=== PATIENT | female | born 1965 | race Caucasian/White ===

== ENCOUNTER 2022-08-02 04:50 | Day surgery (SDC) | payer OTHER ==
[2022-07-28 16:21] VITALS: BMI 31.3
[2022-08-02 08:31] VITALS: TEMP 98.7
[2022-08-02 09:01] VITALS: BP 112/66; PULSE 76; RESP 15
== END 2022-08-02 09:12 | disposition home or self-care (01) ==
LOC: JASU-ENDO 04:50
PROVIDERS: ATTEND Student in an Organized Health Care Education/Training Program
PROC: 0DJD8ZZ Inspection of Lower Intestinal Tract, Via Natural or Artificial Opening Endoscopic (ICD-10-PCS; principal; 2022-08-02 08:00)
DX: K64.8 Other hemorrhoids (principal)